=== PATIENT | male | born 2000 | race Caucasian/White ===

== ENCOUNTER 2024-06-03 19:49 | Emergency (ER) | payer OTHER, SELFPAY ==
[2024-06-03 20:00] VITALS: BP 118/72
[2024-06-03 21:17] VITALS: BMI 23.6
[2024-06-03] MEDS: MOTRIN 600 MG PO (21:55)
--- NOTE | 2024-06-03 22:00 | ED.GENMED ---
History of Present Illness
General
Chief Complaint: Musculo-Skeletal Complaint
Source: patient and family
Exam Limitations: none
Time Seen by Provider: 06/03/24 21:53
History of Present Illness
History of Present Illness:
See MDM
Past History
Past History
ED Past Medical History: Other (Autism)
ED Past Surgical History: None
Social History
Tobacco: Non-smoker
Alcohol: None
Phy Exam
Physical Exam
Physical Exam:
See MDM
Course
Orders/Labs/Results
Orders:
Orders
06/03/24 20:02
Ankle, Right 3 view CR [CR Ankle - Right Min 3 Views *] Urgent
Comment:
Reason For Exam: PAIN/SWELLING
06/03/24 21:53
Ibuprofen [Motrin] 600 mg .ROUTE .STK-MED ONE
06/03/24 21:55
Ibuprofen [Motrin] 600 mg PO NOW STA
06/03/24 21:58
Tib/Fib, Right 2 View [CR Leg Tibia/fibula Right 2 Vw] Urgent
Comment:
Reason For Exam: distal tib/fib pain
Vital Signs
Initial and Last Documented VS:
Initial Vital Signs
Temp Pulse Resp BP Pulse Ox
99.3 F 76 22 118/72 98
06/03/24 20:00 06/03/24 20:00 06/03/24 20:00 06/03/24 20:00 06/03/24 20:00
Last Documented Vital Signs
Temp Pulse Resp BP Pulse Ox
99.3 F 76 22 118/72 98
06/03/24 20:00 06/03/24 20:00 06/03/24 20:00 06/03/24 20:00 06/03/24 20:00
MDM/Problems Addressed
Differential Diagnosis Includes:
HPI and MDM Narrative:
23-year-old male presents with right ankle injury. This occurred when he was jumping on the trampoline. Patient does have a history of autism and family indicates that he is at high pain threshold. On exam, he has significant swelling to his
ankle along the right lateral malleolus. The extremity is neurovascularly intact. Tenderness localized to palpation of right lateral malleolus. There is mild tenderness to distal fibula as well. X-rays performed prior to my evaluation. There is
a questionable avulsion fracture noted on the x-ray. Given the ongoing pain, will obtain tib-fib x-ray as well. Will give Motrin and crutches
Physical exam
General: Well appearing and non-toxic
HEENT: protecting airway
Neck: appears supple
CV: No evidence of cyanosis
Resp: No accessory muscle use
Abd: Non-distended
Extremities: Swelling and tenderness to right lateral malleolus. Sensation and pulses intact
Neuro: alert
Psych: Normal affect
Skin: Intact
Problems Addressed including Acute and Chronic Conditions affecting care:
1. Ankle injury
Acuity: acute
Prognosis: stable
Details: Pain with weightbearing. Will Aquiles wrap and give crutches
Updates
Questionable avulsion fracture on ankle x-ray. Discussed follow-up with podiatry
Differential Diagnosis (but not limited to): Ankle fracture, ankle sprain
Testing considered: Foot x-ray
Drug therapy (if applicable): OTC meds, please see d/c instruction regarding Rx drugs
Amount and/or Complexity of Data Reviewed
Clinical info obtained from: Patient and family
External data reviewed: N/A
Labs I independently reviewed (but not limited to): N/A
Radiology: X-ray independently reviewed: Questionable avulsion fracture to the distal fibula
Pulse Ox: not hypoxic
EKG independently reviewed: N/A
Instructional Aide: N/A
Critical Care: N/A
Risk of Complication:
Social Determinants of health: Good social support
Discussed with other providers: N/A
Escalation of Care includes Admit/Obs: After being observed in the Emergency Department, pt stable for discharge.
Occasional wrong word or 'sound a like' substitutions may have occurred due to the inherent limitations of voice recognition software. Read the chart carefully and recognize, using context, where substitutions have occurred.
*Critical Care Note
Total Time (30-74mins, 75-104mins- exclusive of procedures): Not Applicable
ED Attending Note
-
Portions of this chart may have been created with voice recognition software.� Occasional wrong word or��sound alike� substitutions may have occurred due to the inherent limitations of voice recognition software.
Discharge Plan
Departure
Patient Disposition: Home (Routine Discharge)
Date of Disposition: 06/03/24
Time of Disposition: 22:38
Patient with high blood pressure during this ER visit?: No
Discharge Problem:
Right ankle sprain
Instructions: Sprain (DC)
Prescriptions:
No Action
cephalexin 50 MG/ML suspension for reconstitution
250 mg PO TID Qty: 110 0RF
Referrals:
Luis Escamilla, [Family Provider] -
Preston Hamlin DPM [Active] -
Activity Restrictions/Additional Instructions:
As we discussed, his exam is consistent with an ankle sprain. However, there is a questionable chip in the bone on one of the views on the ankle x-ray. Please use the crutches for comfort and please follow-up with the orthopedic office to see the
proposal specialist.
Interventions
Interventions:
*Risk Screen - Suicide Last Done: 06/03/24 21:17
*General Assessment Last Done: 06/03/24 21:17
*Neglect/Abuse Screening Last Done: 06/03/24 21:17
ED-Musculoskeletal Assessment Last Done: 06/03/24 21:20
Discharge Date and Time
Print Language: MEXICAN
== END 2024-06-03 22:55 | disposition home or self-care (01) ==
LOC: EMR 19:49
PROVIDERS: EMERGENCY PHYSICIAN Student in an Organized Health Care Education/Training Program; FAMILY PHYSICIAN Family Medicine
DX: S93.401A Sprain of unspecified ligament of right ankle, initial encounter (principal); X58.XXXA Exposure to other specified factors, initial encounter; F84.0 Autistic disorder
CPT/HCPCS: 99283; 73590; 73610